=== PATIENT | male | born 1990 | race African-American/Black ===

== ENCOUNTER 2017-07-19 04:23 | Emergency (ER) | payer BC ==
[2017-07-19] MEDS ORDERED: LIDOCAINE 1%/EPINEPHRINE INJ 20 ML VIAL INJ ONE (04:46)
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
[2017-07-19] MEDS ORDERED: HYDROCODONE/ACETAMINOPHEN 5-325 MG (6 TAB/ER DISP) PO PRN (06:18)
[2017-07-19 07:09] VITALS: BP 116/55
== END 2017-07-19 07:09 | disposition home or self-care (01) ==
LOC: ER 04:23
PROC: 0HQFXZZ Repair Right Hand Skin, External Approach (ICD-10-PCS; principal; 2017-07-19)
DX: S61.411A Laceration without foreign body of right hand, initial encounter (principal); S61.212A Laceration without foreign body of right middle finger without damage to nail, initial encounter; W25.XXXA Contact with sharp glass, initial encounter
CPT/HCPCS: 99283; 12042; J3490

== ENCOUNTER 2017-08-01 13:57 | Emergency (ER) | payer BC ==
--- NOTE | 2017-08-01 14:45 | ER Document Report ---
ED Suture/Wound Recheck - General Chief Complaint: Suture Removal Stated Complaint: SUTURE REMOVAL Time Seen by Provider: 08/01/17 14:43 Mode of Arrival: Ambulatory Information source: Patient TRAVEL OUTSIDE OF THE [place] IN LAST 30 DAYS: No - HPI Patient complains to provider of: suture D/C Treated in ED (days ago): 14 - Related Data Allergies/Adverse Reactions: No Known Allergies Allergy (Verified 08/01/17 14:44) Past Medical History - General Information source: Patient - Social History Smoking Status: Never Smoker Cigarette use (# per day): No Chew tobacco use (# tins/day): No Smoking Education Provided: No Family History: Reviewed & Not Pertinent Renal/ Medical History: Denies: Hx Peritoneal Dialysis Past Surgical History: Reports: Hx Orthopedic Surgery - right knee - Immunizations Immunizations up to date: Yes Hx Diphtheria, Pertussis, Tetanus Vaccination: Yes Review of Systems - Review of Systems Constitutional: No symptoms reported EENT: No symptoms reported Cardiovascular: No symptoms reported Respiratory: No symptoms reported Gastrointestinal: No symptoms reported -: Yes All other systems reviewed and negative Physical Exam - Vital signs Vitals: Temp Pulse Resp BP Pulse Ox 98.1 F 80 16 119/66 99 08/01/17 14:12 08/01/17 14:12 08/01/17 14:12 08/01/17 14:12 08/01/17 14:12 - General General appearance: Appears well In distress: None - Extremities Hand: Other - well-healed laceration Course - Vital Signs Vital signs: Temp Pulse Resp BP Pulse Ox 98.1 F 80 16 119/66 99 08/01/17 14:12 08/01/17 14:12 08/01/17 14:12 08/01/17 14:12 08/01/17 14:12 Discharge - Discharge Clinical Impression: Visit for suture removal Condition: Stable Disposition: HOME, SELF-CARE Additional Instructions: rest, F/U prn Referrals: PHILLY PUCKETT MD [ACTIVE STAFF] - Follow up as needed
[2017-08-01 15:16] VITALS: BP 123/67
== END 2017-08-01 15:11 | disposition home or self-care (01) ==
LOC: ER 13:57
DX: S61.419D Laceration without foreign body of unspecified hand, subsequent encounter (principal); X58.XXXD Exposure to other specified factors, subsequent encounter

== ENCOUNTER 2018-02-24 15:04 | Emergency (ER) | payer SELFPAY ==
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
[2018-02-24 17:12] VITALS: BP 115/67
== END 2018-02-24 17:17 | disposition home or self-care (01) ==
LOC: ER 15:04
DX: S02.2XXA Fracture of nasal bones, initial encounter for closed fracture (principal); S80.02XA Contusion of left knee, initial encounter; R51 Headache; R55 Syncope and collapse; Y09 Assault by unspecified means; F17.200 Nicotine dependence, unspecified, uncomplicated
CPT/HCPCS: 70450; 70486; 99284